=== PATIENT | male | born 1970 | race Caucasian/White ===

== ENCOUNTER 2024-02-24 10:01 | Emergency (ER) | payer SELFPAY ==
[~2024-02-24] VITALS: Ht 162.6 cm; Wt 91.9 kg
[2024-02-24 10:04] VITALS: BP 173/83; PULSE 71; RESP 19; TEMP 97.5; O2SAT 98
[2024-02-24 10:24] VITALS: TEMP 98.4
[2024-02-24] MEDS: KETOROLAC 30 MG/ML VIAL IVP ONE (10:36)
[2024-02-24] MEDS: NACL 0.9% 1,000 ML IV SCH (10:40)
[2024-02-24 10:48] LABS: BASOPHILS % (AUTO) 0.3 % (0.0-2.0); EOSINOPHILS % (AUTO) 0.1 % (0.0-4.0); HEMATOCRIT 43.5 % (36-52); HEMOGLOBIN 15.1 g/dL (12.0-18.0); LYMPHOCYTES # (AUTO) 1.3 K/uL (2.0-11.5); MEAN CORPUSCULAR HEMOGLOBIN 29 pg (27-31); MEAN CORPUSCULAR HGB CONC 35 g/dL (33-37); MONOCYTES # (AUTO) 0.8 K/uL (0.8-1.0); MONOCYTES % (AUTO) 5.3 % (1.7-9.3); NEUTROPHILS # (AUTO) 13.3 K/uL (1.8-7.7); PLATELET COUNT (AUTO) 253 K/uL (140-450); RED BLOOD CELL COUNT(AUTO) 5.31 MIL/uL (4.20-6.10); WHITE BLOOD COUNT (AUTO) 15.5 K/uL (4.8-10.8)
[2024-02-24 11:03] LABS: CALCIUM 9.4 mg/dL (8.5-10.1); CARBON DIOXIDE 26.4 mmol/L (21-32); CREATININE 0.8 mg/dL (0.6-1.3); POTASSIUM 3.4 mmol/L (3.5-5.1)
[2024-02-24 11:09] LABS: ALBUMIN 3.9 g/dL (3.4-5.0); BILIRUBIN,DIRECT 0.1 mg/dL (0.0-0.3); TOTAL BILIRUBIN 0.7 mg/dL (0.0-1.0)
[2024-02-24 11:15] LABS: LYMPHOCYTES % (AUTO) 8.4 % (20.5-51.1); NEUTROPHILS % (AUTO) 85.9 % (42.2-75.2)
[2024-02-24 11:47] LABS: APPEARANCE,URINE CLEAR (CLEAR); BILIRUBIN,URINE NEGATIVE (NEGATIVE); BLOOD, URINE 1+ (NEGATIVE); COLOR,URINE YELLOW (YELLOW); LEUKOCYTE ESTERASE ,URINE NEGATIVE (NEGATIVE); NITRITE, URINE NEGATIVE (NEGATIVE); PROTEIN,URINE 1+ (NEGATIVE); UGLUCOSE NEGATIVE (NEGATIVE); UROBILINOGEN,URINE 0.2 EU/dL (0.2 - 1)
[2024-02-24 12:16] VITALS: O2SAT 98
[2024-02-24 12:16] LABS: BACTERIA,URINE OCCASSIONAL /HPF (None Seen); SQUAMOUS EPITHELIAL CELL,UR 0-3 (FEW) /LPF (0-3 (FEW)); WBC,URINE 0-5 /HPF (0-5)
[2024-02-24 12:20] VITALS: BP 145/83; PULSE 64; RESP 15; O2SAT 98
[2024-02-24] MEDS ORDERED: MIRABULK PO (12:20)
[2024-02-24] MEDS ORDERED: OMEP40EC23 PO (12:20)
[2024-02-24] MEDS ORDERED: IBUP-2213 PO (12:20)
== END 2024-02-24 12:25 | disposition home or self-care (01) ==
LOC: MED 10:01
DX: K59.00 Constipation, unspecified (principal)
CPT/HCPCS: 36415; 74176; 80048; 80076; 81001; 83690; 85025; 96374; 99285; J1885; J7030; 96361